=== PATIENT | male | born 1995 | race Asian ===

== ENCOUNTER 2017-06-23 18:18 | Outpatient (CLI) | payer OTHER | END 2017-06-23 20:00 | disposition home or self-care (01) | LOC: LAB 18:18 | DX: Z11.3 Encounter for screening for infections with a predominantly sexual mode of transmission (principal) | CPT/HCPCS: 87490; 87590 ==

== ENCOUNTER 2017-07-09 19:20 | Outpatient (CLI) | payer OTHER | END 2017-07-09 19:56 | disposition short-term general hospital (02) | LOC: AMB 19:20 | DX: R07.81 Pleurodynia (principal); M25.551 Pain in right hip; V49.49XA Driver injured in collision with other motor vehicles in traffic accident, initial encounter; Y92.414 Local residential or business street as the place of occurrence of the external cause | CPT/HCPCS: A0425; A0427 ==

== ENCOUNTER 2017-07-09 20:11 | Emergency (ER) | payer OTHER ==
[~2017-07-09] VITALS: Ht 188 cm; Wt 68.5 kg
[2017-07-09 21:08] LABS: PLATELET COUNT 220 K/uL (142-355)
[2017-07-09 21:13] LABS: POTASSIUM 3.1 mmol/L (3.6-5.2)
[2017-07-09 22:50] VITALS: BP 128/76
== END 2017-07-09 22:50 | disposition short-term general hospital (02) ==
LOC: ED 20:11
PROVIDERS: Specialist
PROC: 0T9B70Z Drainage of Bladder with Drainage Device, Via Natural or Artificial Opening (ICD-10-PCS; principal; 2017-07-09)
DX: S27.0XXA Traumatic pneumothorax, initial encounter (principal); S27.321A Contusion of lung, unilateral, initial encounter; S70.02XA Contusion of left hip, initial encounter; S70.01XA Contusion of right hip, initial encounter; S30.810A Abrasion of lower back and pelvis, initial encounter; M25.552 Pain in left hip; V43.52XA Car driver injured in collision with other type car in traffic accident, initial encounter
CPT/HCPCS: 36415; 36600; 51702; 80053; 81000; 82150; 82805; 83690; 85027; 93005; 96374; 96375; 99285; J1170; J2405

== ENCOUNTER 2017-07-09 22:56 | Outpatient (CLI) | payer OTHER | END 2017-07-10 00:21 | disposition short-term general hospital (02) | LOC: AMB 22:56 | DX: S27.0XXA Traumatic pneumothorax, initial encounter (principal); S27.321A Contusion of lung, unilateral, initial encounter; S70.02XA Contusion of left hip, initial encounter; S70.01XA Contusion of right hip, initial encounter; S30.810A Abrasion of lower back and pelvis, initial encounter; M25.552 Pain in left hip | CPT/HCPCS: A0425; A0427 ==

== ENCOUNTER 2019-03-19 11:33 | Emergency (ER) | payer BC ==
[~2019-03-19] VITALS: Ht 185.4 cm; Wt 69.4 kg
[2019-03-19 11:41] VITALS: TEMP 97.7
[2019-03-19 12:24] VITALS: BP 126/74
== END 2019-03-19 12:24 | disposition home or self-care (01) ==
LOC: ED 11:33
DX: K64.4 Residual hemorrhoidal skin tags (principal)
CPT/HCPCS: 99282

== ENCOUNTER 2020-10-22 09:47 | Emergency (ER) | payer OTHER ==
[~2020-10-22] VITALS: Ht 185.4 cm; Wt 74.8 kg
[2020-10-22 09:53] VITALS: TEMP 97.7
[2020-10-22 10:36] LABS: PLATELET COUNT 148 K/uL (142-355)
[2020-10-22 10:49] LABS: POTASSIUM 3.8 mmol/L (3.6-5.2)
[2020-10-22 11:30] VITALS: BP 124/78
== END 2020-10-22 11:30 | disposition home or self-care (01) ==
LOC: ED 09:47
PROVIDERS: Emergency Medicine
DX: R10.31 Right lower quadrant pain (principal); R10.32 Left lower quadrant pain; K59.09 Other constipation
CPT/HCPCS: 80053; 80307; 80320; 81000; 82150; 83690; 85027; 99284